=== PATIENT | female | born 1990 | race American Indian/Alaskan Native ===

== ENCOUNTER 2016-02-26 10:54 | Emergency (ER) | payer MEDICAID, OTHER ==
[2016-02-26] MEDS ORDERED: DEXAMETHASONE 10 MG/ML VIAL PO STA (12:19)
[2016-02-26] MEDS ORDERED: CHERRY SYRUP 10 ML UDC PO ONE (12:24)
[2016-02-26] MEDS ORDERED: DEXAMETHASONE 10 MG/ML VIAL ONE (12:24)
== END 2016-02-26 13:54 | disposition home or self-care (01) ==
DX: R22.1 Localized swelling, mass and lump, neck (principal); F17.200 Nicotine dependence, unspecified, uncomplicated
CPT/HCPCS: 70360; 87070; 87430; 99283; A9270

== ENCOUNTER 2016-03-02 12:43 | Emergency (ER) | payer MEDICAID, OTHER ==
[2016-03-02] MEDS ORDERED: MAG HYDROX/AL HYDROX/SIMETH 30 ML UDC PO STA (14:27)
[2016-03-02] MEDS ORDERED: LIDOCAINE VISCOUS 2% 15 ML UDC MM STA (14:27)
[2016-03-02] MEDS ORDERED: LIDOCAINE VISCOUS 2% 15 ML UDC MM ONE (14:33)
[2016-03-02] MEDS ORDERED: MAG HYDROX/AL HYDROX/SIMETH 30 ML UDC ONE (14:33)
[2016-03-02] MEDS ORDERED: HYDROmorphone 1 MG/ML SYRINGE IVP STA ×2 (14:51→16:49)
[2016-03-02] MEDS ORDERED: ONDANSETRON 4 MG/2 ML VIAL IVP STA (14:51)
[2016-03-02] MEDS ORDERED: ONDANSETRON 4 MG/2 ML VIAL ONE (15:05)
[2016-03-02] MEDS ORDERED: HYDROmorphone 1 MG/ML SYRINGE ONE ×2 (15:05→16:52)
[2016-03-02] MEDS ORDERED: IOPAMIDOL-300 100 ML VIAL IVP ONE (15:48)
== END 2016-03-02 17:03 | disposition home or self-care (01) ==
DX: R10.12 Left upper quadrant pain (principal); R11.10 Vomiting, unspecified; Z90.49 Acquired absence of other specified parts of digestive tract; N83.201 Unspecified ovarian cyst, right side; R03.0 Elevated blood-pressure reading, without diagnosis of hypertension; F17.200 Nicotine dependence, unspecified, uncomplicated
CPT/HCPCS: 36415; 74177; 80053; 81003; 81025; 83690; 85025; 87339; 96374; 96375; 96376; 99283; 99284; A9270; J1170; Q9967

== ENCOUNTER 2016-03-09 | Emergency (ER) | payer MEDICAID, OTHER | END 2016-03-09 10:45 | disposition home or self-care (01) ==

== ENCOUNTER 2016-03-29 16:43 | Emergency (ER) | payer MEDICAID, OTHER ==
[2016-03-29] MEDS ORDERED: PROMETHAZINE INJ 12.5 MG in SODIUM CHLORIDE 0.9% 50 ML IV STA (17:25)
[2016-03-29] MEDS ORDERED: SODIUM CHLORIDE 0.9% 1,000 ML IV ONE (17:25)
[2016-03-29] MEDS ORDERED: KETOROLAC 60 MG/2 ML VIAL IVP STA (17:25)
[2016-03-29] MEDS ORDERED: HYDROmorphone 1 MG/ML SYRINGE IVP STA ×2 (17:25→19:37)
[2016-03-29] MEDS ORDERED: ONDANSETRON 4 MG/2 ML VIAL IVP STA (17:25)
[2016-03-29] MEDS ORDERED: HYDROmorphone 1 MG/ML SYRINGE ONE ×2 (17:31→19:53)
[2016-03-29] MEDS ORDERED: ONDANSETRON 4 MG/2 ML VIAL ONE (17:31)
[2016-03-29] MEDS ORDERED: KETOROLAC 30 MG/ML VIAL ONE (17:31)
[2016-03-29] MEDS ORDERED: PROMETHAZINE 25 MG/1 ML VIAL ONE (17:31)
[2016-03-29] MEDS ORDERED: DEXAMETHASONE 10 MG/ML VIAL IVP STA (19:37)
[2016-03-29] MEDS ORDERED: DEXAMETHASONE 10 MG/ML VIAL ONE (19:54)
[2016-03-29] MEDS ORDERED: CHERRY SYRUP 10 ML UDC PO ONE (19:54)
== END 2016-03-29 20:28 | disposition home or self-care (01) ==
DX: R51 Headache (principal); M54.2 Cervicalgia; R11.2 Nausea with vomiting, unspecified; F17.200 Nicotine dependence, unspecified, uncomplicated
CPT/HCPCS: 70450; 96365; 96375; 96376; 99283; 99284; A9270; J1170

== ENCOUNTER 2016-04-06 20:49 | Emergency (ER) | payer MEDICAID, OTHER ==
[2016-04-07] MEDS ORDERED: KETOROLAC 60 MG/2 ML VIAL IVP STA (01:05)
[2016-04-07] MEDS ORDERED: DEXAMETHASONE 10 MG/ML VIAL IVP STA (01:05)
[2016-04-07] MEDS ORDERED: SODIUM CHLORIDE 0.9% 1,000 ML IV ONE (01:05)
[2016-04-07] MEDS ORDERED: DEXAMETHASONE 10 MG/ML VIAL ONE (01:08)
[2016-04-07] MEDS ORDERED: KETOROLAC 30 MG/ML VIAL ONE (01:08)
== END 2016-04-07 03:13 | disposition home or self-care (01) ==
DX: M54.81 Occipital neuralgia (principal); E86.0 Dehydration; M54.2 Cervicalgia; M62.838 Other muscle spasm; Z72.820 Sleep deprivation; F17.200 Nicotine dependence, unspecified, uncomplicated

== ENCOUNTER 2016-04-27 18:35 | Emergency (ER) | payer MEDICAID, OTHER | END 2016-04-27 20:28 | disposition home or self-care (01) | DX: R07.89 Other chest pain (principal); G93.2 Benign intracranial hypertension; Z82.49 Family history of ischemic heart disease and other diseases of the circulatory system; F17.200 Nicotine dependence, unspecified, uncomplicated ==

== ENCOUNTER 2016-06-02 14:02 | Emergency (ER) | payer MEDICAID, OTHER ==
[2016-06-02] MEDS ORDERED: diphenhydrAMINE INJ 50 MG/ML VIAL IVP STA (15:04)
[2016-06-02] MEDS ORDERED: PROCHLORPERAZINE 10 MG/2 ML VIAL IVP STA (15:04)
[2016-06-02] MEDS ORDERED: diphenhydrAMINE INJ 50 MG/ML VIAL ONE (15:08)
[2016-06-02] MEDS ORDERED: PROCHLORPERAZINE 10 MG/2 ML VIAL ONE (15:09)
== END 2016-06-02 16:40 | disposition home or self-care (01) ==
DX: G43.109 Migraine with aura, not intractable, without status migrainosus (principal); H57.02 Anisocoria; G93.2 Benign intracranial hypertension; F17.200 Nicotine dependence, unspecified, uncomplicated

== ENCOUNTER 2016-06-06 22:08 | Emergency (ER) | payer MEDICAID, OTHER ==
[2016-06-06] MEDS ORDERED: oxyCOD/ACETAMIN 5 MG/325 MG TABLET PO STA (22:48)
[2016-06-06] MEDS ORDERED: oxyCOD/ACETAMIN 5 MG/325 MG TABLET PO ONE (22:55)
== END 2016-06-06 23:25 | disposition home or self-care (01) ==
DX: G97.1 Other reaction to spinal and lumbar puncture (principal); Y84.4 Aspiration of fluid as the cause of abnormal reaction of the patient, or of later complication, without mention of misadventure at the time of the procedure; G93.2 Benign intracranial hypertension; F17.200 Nicotine dependence, unspecified, uncomplicated
CPT/HCPCS: 99283; A9270

== ENCOUNTER 2016-06-08 13:46 | Emergency (ER) | payer MEDICAID, OTHER ==
[2016-06-08] MEDS ORDERED: diphenhydrAMINE INJ 50 MG/ML VIAL IVP STA (14:36)
[2016-06-08] MEDS ORDERED: KETOROLAC 60 MG/2 ML VIAL IVP STA (14:36)
[2016-06-08] MEDS ORDERED: DEXAMETHASONE 10 MG/ML VIAL IVP STA (14:36)
[2016-06-08] MEDS ORDERED: SODIUM CHLORIDE 0.9% 1,000 ML IV ONE (14:36)
[2016-06-08] MEDS ORDERED: PROCHLORPERAZINE 10 MG/2 ML VIAL IVP STA (14:36)
[2016-06-08] MEDS ORDERED: PROCHLORPERAZINE 10 MG/2 ML VIAL ONE (14:48)
[2016-06-08] MEDS ORDERED: KETOROLAC 30 MG/ML VIAL ONE (14:48)
[2016-06-08] MEDS ORDERED: DEXAMETHASONE 10 MG/ML VIAL ONE (14:48)
[2016-06-08] MEDS ORDERED: diphenhydrAMINE INJ 50 MG/ML VIAL ONE (14:48)
== END 2016-06-08 16:31 | disposition home or self-care (01) ==
DX: G97.1 Other reaction to spinal and lumbar puncture (principal); Y84.4 Aspiration of fluid as the cause of abnormal reaction of the patient, or of later complication, without mention of misadventure at the time of the procedure; G93.2 Benign intracranial hypertension; F41.9 Anxiety disorder, unspecified; F17.200 Nicotine dependence, unspecified, uncomplicated

== ENCOUNTER 2016-06-11 20:15 | Emergency (ER) | payer MEDICAID, OTHER ==
[2016-06-11] MEDS ORDERED: LORazepam 2 MG/ML SYRINGE IVP STA (21:14)
[2016-06-11] MEDS ORDERED: LORazepam 2 MG/ML SYRINGE ONE (21:15)
[2016-06-11] MEDS ORDERED: SODIUM CHLORIDE 0.9% 1,000 ML IV ONE (21:25)
[2016-06-11] MEDS ORDERED: IOPAMIDOL-300 100 ML VIAL IVP ONE (21:44)
== END 2016-06-11 22:45 | disposition home or self-care (01) ==
DX: R06.00 Dyspnea, unspecified (principal); G93.2 Benign intracranial hypertension; F17.200 Nicotine dependence, unspecified, uncomplicated; R03.0 Elevated blood-pressure reading, without diagnosis of hypertension
CPT/HCPCS: 36415; 71020; 71275; 80053; 81001; 81025; 83690; 83880; 84484; 85025; 85379; 85610; 85730; 87086; 93005; 93010; 96361; 96374; 99284; J2060; Q9967

== ENCOUNTER 2016-07-15 21:32 | Emergency (ER) | payer MEDICAID, OTHER ==
[2016-07-15 21:40] VITALS: BP 144/94
--- NOTE | 2016-07-15 23:40 | ED Physician Documentation ---
PD HPI HEADACHE - Stated complaint Stated Complaint: HEADACHE - Chief complaint Chief Complaint: Neuro - History obtained from History obtained from: Patient - History of Present Illness Timing - onset: How many days ago (2) Timing - duration: Days Timing - details: Gradual onset, Constant, Waxing and waning Pain level now: 8 Worst headache ever?: No: Worst headache ever? Quality: Throbbing Associated symptoms: Nausea. No: Fever, Vomiting Improved by: Rest Similar symptoms before: Diagnosis (migraine, pseudotumor cerbri) Recently seen: Emergency Dept Review of Systems Constitutional: reports: Reviewed and negative Eyes: reports: Reviewed and negative Ears: reports: Reviewed and negative Cardiac: reports: Reviewed and negative Respiratory: reports: Reviewed and negative GI: reports: Nausea. denies: Abdominal Pain, Vomiting Neurologic: reports: Headache. 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 - Past Surgical History Past Surgical History: Yes General: Cholecystectomy /MATHS TUTOR: Tubal ligation HEENT: Tonsil/Adenoidectomy - Present Medications Home Medications: Ambulatory Orders Medication Instructions Recorded Confirmed Acetazolamide 250 mg PO TID 04/27/16 04/27/16 Oxycodone HCl/Acetaminophen 1 - 2 each PO Q6H PRN #7 tablet 06/06/16 [Percocet 5-325 mg Tablet] - Allergies Allergies/Adverse Reactions: Allergies Allergy/AdvReac Type Severity Reaction Status Date / Time No Known Drug Allergies Allergy Verified 07/15/16 21:38 - Social History Does the pt smoke?: Yes Smoking Status: Current every day smoker Does the pt drink ETOH?: No Does the pt have substance abuse?: No - Immunizations Immunizations are current?: Yes - POLST Patient has POLST: No PD ED PE NORMAL - Vitals Vital signs reviewed: Yes - General General: Alert and oriented X 3, No acute distress, Well developed/nourished - HEENT HEENT: PERRL, EOMI, Moist mucous membranes - Neck Neck: Supple, no meningeal sign - Cardiac Cardiac: RRR, No murmur - Respiratory Respiratory: No respiratory distress, Clear bilaterally - Derm Derm: Normal color, Warm and dry - Extremities Extremities: No edema - Neuro Neuro: Alert and oriented X 3, bread dough mixer 2-12 intact, No motor deficit, No sensory deficit, Normal speech Results - Vitals Vitals: Oxygen O2 Source Room air PD MEDICAL DECISION MAKING - ED course Complexity details: reviewed results, re-evaluated patient, considered differential, d/w patient Departure - Departure Disposition: 01 Home, Self Care Clinical Impression: Headache Condition: Good Instructions: ED Headache Migraine Follow-Up: Greta Cutler PA-C [Primary Care Provider] - Discharge Date/Time: 07/16/16 00:08
[2016-07-15] MEDS ORDERED: DEXAMETHASONE 10 MG/ML VIAL PO STA (23:58)
[2016-07-15] MEDS ORDERED: oxyCOD/ACETAMIN 5 MG/325 MG TABLET PO STA (23:58)
[2016-07-15] MEDS ORDERED: KETOROLAC 60 MG/2 ML VIAL IM STA (23:58)
[2016-07-16] MEDS ORDERED: KETOROLAC 60 MG/2 ML VIAL ONE
[2016-07-16] MEDS ORDERED: oxyCOD/ACETAMIN 5 MG/325 MG TABLET PO ONE
[2016-07-16] MEDS ORDERED: DEXAMETHASONE 10 MG/ML VIAL ONE
== END 2016-07-16 00:08 | disposition home or self-care (01) ==
LOC: ED 21:32
DX: R51 Headache (principal); G93.2 Benign intracranial hypertension; F17.200 Nicotine dependence, unspecified, uncomplicated; Z86.69 Personal history of other diseases of the nervous system and sense organs
CPT/HCPCS: 96372; 99283; A9270

== ENCOUNTER 2016-07-24 20:35 | Emergency (ER) | payer MEDICAID, OTHER ==
[2016-07-24] MEDS ORDERED: oxyCOD/ACETAMIN 5 MG/325 MG TABLET PO STA (20:52)
[2016-07-24] MEDS ORDERED: KETOROLAC 60 MG/2 ML VIAL IM STA (20:52)
[2016-07-24] MEDS ORDERED: oxyCOD/ACETAMIN 5 MG/325 MG TABLET PO ONE (20:57)
[2016-07-24] MEDS ORDERED: KETOROLAC 60 MG/2 ML VIAL ONE (20:57)
--- NOTE | 2016-07-24 21:00 | ED Physician Documentation ---
PD HPI HEADACHE - Stated complaint Stated Complaint: WILSON - Chief complaint Chief Complaint: Neuro - History obtained from History obtained from: Patient, Family - History of Present Illness Timing - onset: Chronic Timing - details: Gradual onset, Still present Worst headache ever?: Worst headache ever? (no) Quality: Throbbing, Aching Associated symptoms: Nausea. No: Fever, Stiff neck, Vomiting, Weakness, Numbness Improved by: Rest, Dark room, Meds Similar symptoms before: Work up / diagnostics, Treatment, Follow up Recently seen: Emergency Dept - Additional information Additional information: Patient is a 26 year old female with a history of psuedotumor cerebri and migraines. Patient states that she developed a worsening headache today. patient states that she tried to call her pmd/neurologist but she could not get an answer. she called the after hours line and they told the patient to come to the emergency department. Patient's last LP about a 6 weeks ago showed normal pressures. Patient denied any nausea, vomiting or focal neurological deficit. Review of Systems Constitutional: denies: Fever, Chills Eyes: reports: Decreased vision, Photophobia Ears: reports: Ear pain. denies: Loss of hearing, Drainage/discharge, Tinnitus/ ringing Nose: denies: Rhinorrhea / runny nose, Congestion, Epistaxis Throat: denies: Dental pain / toothache, Oral lesions / sores, Sore throat Cardiac: denies: Chest pain / pressure Respiratory: denies: Dyspnea, Cough GI: denies: Nausea, Vomiting : denies: Dysuria, Frequency, Hesitancy Skin: denies: Rash, Lesions Musculoskeletal: denies: Neck pain, Back pain, Extremity pain Neurologic: denies: Generalized weakness, Focal weakness, Numbness Psychiatric: denies: Depressed, Suicidal Immunocompromised: denies: Immunocompromised PD PAST MEDICAL HISTORY - Past Medical History Cardiovascular: None Respiratory: None Neuro: Headache/migraine, Other Endocrine/Autoimmune: None GI: None 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, Other : None Psych: Depression Musculoskeletal: None Other Past Medical History: 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 - Past Surgical History Past Surgical History: Yes General: Cholecystectomy /REPULPING SUPERVISOR: Tubal ligation HEENT: Tonsil/Adenoidectomy - Present Medications Home Medications: Ambulatory Orders Medication Instructions Recorded Confirmed Acetazolamide 250 mg PO TID 04/27/16 07/24/16 Sertraline [Zoloft] 25 mg PO DAILY 07/24/16 07/24/16 - Allergies Allergies/Adverse Reactions: Allergies Allergy/AdvReac Type Severity Reaction Status Date / Time No Known Drug Allergies Allergy Verified 07/24/16 20:49 - Social History Does the pt smoke?: Yes Smoking Status: Current every day smoker Does the pt drink ETOH?: No Does the pt have substance abuse?: No - Immunizations Immunizations are current?: Yes - POLST Patient has POLST: No PD ED PE NORMAL - Vitals Vital signs reviewed: Yes - General General: Alert and oriented X 3, No acute distress - HEENT HEENT: Atraumatic, PERRL, Moist mucous membranes, Pharynx benign - Neck Neck: Supple, no meningeal sign, No JVD - Cardiac Cardiac: RRR, No murmur - Respiratory Respiratory: No respiratory distress - Abdomen Abdomen: Soft, Non tender, Non distended - Derm Derm: Normal color, Warm and dry, No rash - Extremities Extremities: No deformity, No tenderness to palpate, No edema - Neuro Neuro: Alert and oriented X 3, chrome plater helper 2-12 intact, No motor deficit, No sensory deficit, Normal speech - Psych Psych: Normal mood, Normal affect PD ED PE EXPANDED - HEENT HEENT: Other (minimal papilledema) Results - Vitals Vitals: Vital Signs - 24 hr 07/24/16 20:39 Temperature 37.2 C Heart Rate 80 Respiratory 20 Rate Blood Pressure 144/80 H O2 Saturation 100 Oxygen O2 Source Room air PD MEDICAL DECISION MAKING - ED course Complexity details: reviewed old records, re-evaluated patient, considered differential, d/w patient, d/w family ED course: Patient was seen and examined at bedside. Patient had no neurological deficits and this was similar to her prior headaches. Patient was given the option of iV vs oral medications/shots. Patient was treated with toradol and two percocets. the risk benefit of lp was discussed and it was not in her benefit at this time. Patient required no further inpatient work up and was stable for discharge with outpatient follow up. Departure - Departure Disposition: 01 Home, Self Care Clinical Impression: Headache Instructions: ED Cephalgia Unspecified Follow-Up: Greta Cutler PA-C [Primary Care Provider] - Tomorrow Comments: It is important to follow up with your pmd/neurologist tomorrow to check your intracranial pressures and for follow up care. You may return to the emergency department any time for fevers, chills, worsening vision, change in mental status, new or uncontrollable symptoms.
[2016-07-24 21:22] VITALS: BP 124/88
== END 2016-07-24 21:22 | disposition home or self-care (01) ==
LOC: ED 20:35
DX: R51 Headache (principal); G93.2 Benign intracranial hypertension; F17.200 Nicotine dependence, unspecified, uncomplicated
CPT/HCPCS: 96372; 99283; A9270